=== PATIENT | male | born 1980 | race Caucasian/White ===

== ENCOUNTER 2017-10-26 20:40 | Inpatient (IN) ==
[2017-10-26 20:59] LABS: ABG Base Excess -16 mEq/L (-2 to 3); ABG HCO3 21 mEq/L (21-27); ABG Oxygen Saturation 89 % (95-98); ABG PCO2 122 mmHg (35-45); ABG PH 6.85 pH Units (7.32-7.45); ABG PO2 102 mmHg (85-104); ABG TCO2 25 mEq/L (20-26)
[2017-10-26] MEDS ORDERED: 0.9 % Sodium Chloride 500 ML IVC ONE (21:05)
--- NOTE | 2017-10-26 21:11 | Emergency Department Note ---
Disposition Clinical Impression: Hypoxic brain injury, Cardiac arrest, Elevated lactic acid level Overdose Qualifiers: Encounter type: initial encounter Injury intent: undetermined intent Qualified Code(s): T50.904A - Poisoning by unspecified drugs, medicaments and biological substances, undetermined, initial encounter Diarrhea Qualifiers: Diarrhea type: presumed infectious Qualified Code(s): R19.7 - Diarrhea, unspecified Pneumonia Qualifiers: Pneumonia type: due to unspecified organism Laterality: unspecified laterality Lung location: unspecified part of lung Qualified Code(s): J18.9 - Pneumonia, unspecified organism Disposition: Admitted As Inpatient Condition: Critical General Adult HPI - General Chief complaint: ED Cardiac Arrest/CPR Stated complaint: Cardiac arrest possibly secondary to overdose Time Seen by Provider: 10/26/17 20:40 Source: family, EMS - History of Present Illness HPI Narrative: 37-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 EMS reports that the patient was last seen by the parents about 6:30 PM and then around 7:45 was found on the floor unresponsive. When mother arrived and the history obtained from mother she reports that it was a witnessed arrest. She states that she had taken him down some macaroni and cheese and they had eaten and then they were going to watch some movies on the DP are. She went upstairs to get some chocolate and came back down stairs to the basement. The patient was sitting at the DVR when she states that he began talking out of his head and saying things that did not make sense. He then sat down and fell back and his eyes rolled back in his head and he stopped breathing and his lips turned blue. Patient's father started CPR immediately and they called 911. Mother feels this was drug related. The patient has a history of multiple back surgeries and is on chronic pain medications however mother reports that she keep pain medications and gives them to him. He was recently increased to oxycodone 7.5 mg 3 times a day. She reports that he has recently been getting drugs off the street for his pain, particularly fentanyl. She reports that some of his friends came over earlier this evening. After EMS picked the patient up mother states that they did look around and found a straw and some type of smoking pipe. I asked the mother if there was any chance that this was not intentional and she said that it is possible. She reports that about a week ago he was talking about going to [employer] and states that he has been very depressed recently. EMS reports on their arrival the patient was on the floor in the basement unresponsive with no pulse and no respiratory effort. CPR by parents. Initial rhythm was asystole. Patient had a right tibial IO placed for venous access. Patient received epinephrine 1 mg IV and Narcan 4 mg per EMS prior to arrival. He was also defibrillated 1. On arrival here the patient was in PEA rhythm. Patient's down time on arrival here in the emergency department was approximately 45 minutes. Here in the emergency department the patient had an additional Narcan 2 mg IV and additional epinephrine 1 mg. He also received 1 amp of sodium bicarbonate. Patient had return of pulse after this treatment. He received rocuronium 100 mg IV for intubation and was intubated orally by Dr. Novoa. Patient has maintained a spontaneous pulse since the initial return of spontaneous circulation. He was placed on the ventilator. Mother reports patient has no prior history of any cardiac problems or hypertension. No history of diabetes. - Related Data Home Medications Medication Instructions Recorded Confirmed Acetaminophen [Tylenol] 325 mg PO Q4HR 09/01/16 09/01/16 Docusate [Colace] 100 mg PO BID 09/01/16 09/01/16 Ergocalciferol (VITAMIN D2) 50,000 unit PO QWEEK 09/01/16 09/01/16 [Vitamin D2] Gabapentin [Neurontin] 300 mg PO TID 09/01/16 09/01/16 Lidocaine 1 each TP 12 09/01/16 09/01/16 Methocarbamol [Robaxin-750] 750 mg PO QID 09/01/16 09/01/16 Oxycodone HCl/Acetaminophen 1 tab PO Q4H PRN 09/01/16 09/01/16 [Percocet 5-325 mg Tablet] Polyethylene Glycol 3350 17 gm PO DAILY 09/01/16 09/01/16 [Smoothlax] Sennosides [Senna] 8.6 mg PO BID 09/01/16 09/01/16 Allergies Allergy/AdvReac Type Severity Reaction Status Date / Time Apple Allergy Rash Verified 09/01/16 15:00 blue dye Allergy Rash Verified 09/01/16 15:00 Limitations: ROS unobtainable due to patients medical condition Past Medical History - Past Medical History Medical history: Reports: other Psychiatric history: Reports: no psych history - Social History Smoking Status: Former smoker Smokeless Tobacco Status: No Alcohol use: Reports: none Drug use: Reports: marijuana Physical Exam - General Limitations: other (Patient unresponsive) - Head Head exam: atraumatic - Eye Eye exam: Present: miosis, other (Pupils nonreactive) - ENT ENT exam: mucous membranes moist - Neck Neck exam: Present: trachea midline - Chest Chest inspection: Present: symmetric chest wall rise - Respiratory Respiratory exam: Present: normal lung sounds bilaterally, respiratory distress - Cardiovascular Cardiovascular exam: Present: tachycardia - Abdominal Exam Abdominal exam: Present: soft, Non-Tender - Extremities Exam Extremities exam: Absent: joint swelling - Neurological Exam Neurological exam: Present: other (Unresponsive) Course Vital Signs Temperature 98.6 F 10/26/17 20:40 Pulse Rate 152 10/26/17 20:40 Respiratory Rate 14 10/26/17 20:40 Blood Pressure 0/0 10/26/17 20:40 O2 Sat by Pulse Oximetry 85 10/26/17 20:40 Temperature 100.2 F H 10/27/17 04:15 Pulse Rate 138 10/27/17 04:15 Respiratory Rate 16 10/27/17 04:15 Blood Pressure 115/43 10/27/17 04:15 O2 Sat by Pulse Oximetry 99 10/27/17 04:15 Oxygen Delivery Oxygen Delivery Ventilator Procedures - Central Line Placement Right Femoral Central Line Inserted*: Yes Central Line Catheter Replacement*: Yes Central Line Insertion: emergent Consent Obtained: verbal consent Procedural Pause: verify patient name and date of , timeout performed per policy Patient Placed on Monitor/Pulse Ox: Yes During the Procedure: clinician is wearing sterile gloves, cap, mask,& gown during insertion, sterile field and sterile technique are maintained, patient's face is covered with drape or mask and wearing a cap, everyone in room is wearing a mask Central Line Prep: Chlorhexidine scrub Prep the Procedure Site: apply chloraprep to the skin using a back and forth scrubbing motion Ultrasound Used for Placement: Yes Central Line Lumen Inserted: triple Post Procedure: sutured in place, good blood return, all ports aspirated, flushed, capped, sterile dressing applied, guide wire removed and visualized Post Procedure X-Ray: tip of catheter in good position, no pneumothorax seen Patient Tolerated Procedure: well, no complications Complications: none Name of Clinician Inserting Central Line: Tao Lacy DO Clinician Assisting/Completing Checklist: Dr. Yaw Morales Date: 10/27/17 Additional Comments: Due to patient's dwarfism and different anatomy, placement of central line was very difficult. - Intubation Time out performed: No sedative: none paralytic: Rocuronium Mg Given: 100 Laryngoscope: fiber optic video scope Assist Device Used: Bougie ET Tube Size: 7 ET Tube Uncuffed: No Tube Secured Depth (cm): 20 Tube Secured Location: lips Intubation Complications: none Additional Comments: Patient was intubated by Dr. Reji Novoa during cardiac arrest with CPR in progress. Medical Decision Making - [facility] Narrative Medical decision making narrative: 37-year-old male with past medical history of dwarfism and overdoses with fentanyl presents to the emergency department via EMS after being found unresponsive at home. Concern from her parents was that patient may have attempted suicide. Patient may have been down for an hour and a half prior to EMS arrival. Patient was given 4 of Narcan prior to arrival to the emergency department as well as a milligram of epinephrine. Patient was in asystole. He was defibrillated. Once the patient arrived in the emergency department, he was in PEA. Patient was intubated. He received chest compressions, 1 round of epinephrine and ROSC was obtained. Patient was profoundly tachycardic with a heart rate in the 150s. Patient was given a 500 mg bolus of fluids and did not respond to therapy. He was also given a liter of normal saline and did not respond to this as well. We did not begin any rate lowering medications as there was concern for possible worsening of patient's hypotension. Initial blood gas revealed a pH of 6.85. PCO2 was elevated. Cause of acidosis was most likely secondary to hypoxia, hypoperfusion of organs. He was given an amp of bicarbonate during the code. He was also started on bicarbonate infusion. CT scan of the head was obtained and revealed evidence of lower hypoxic ischemic injury. There is no intracranial hemorrhage. Cervical spine CT was negative for an acute abdomen at the cervical spine. CTA of the chest and not reveal any evidence of pulmonary embolus, we will revealed possible pneumonia that could be considered aspiration. We gave patient vancomycin and Zosyn. Repeat blood gas revealed a pH of 7.2. At that time, we stopped bicarbonate infusion. Patient was having diarrhea in the emergency department. There was concern from nursing staff that this may be C. difficile. IV Flagyl started. GI infection panel is pending. Family was made aware of results of imaging and labs. Aware of concern for anoxic brain injury. Spoke with hospitalist on phone regarding admission. They agreed to admit patient to the intensive care unit. Requested we place central line as blood pressures were labile. Right femoral vein central venous catheter was placed. This was very difficult due to patient's anatomy. Head CT 10/26/17 21:07 IMPRESSION: Findings highly suspicious for global hypoxic ischemic injury. No intracranial hemorrhage. Findings were discussed with Dr. Lacy at 11:35 pm on 10/26/2017. D/ / Dale Berrios MD / Dale Berrios MD Interpreting Provider: Dale Berrios MD Chest X-Ray 10/26/17 21:08 IMPRESSION: 1. Endotracheal tube approximately 1.1 cm above the tin. 2. Partial re-expansion of the left lung with persistent left basilar airspace opacities. D/ / Carlos Menard MD / Carlos Menard MD Interpreting Provider: Carlos Menard MD Cervical Spine CT 10/26/17 21:14 IMPRESSION: No acute abnormality of the cervical spine. D/ / 10/26/2017 23:32:45 Dale Berrios MD / heidi Interpreting Provider: Dale Berrios MD Chest CTA 10/26/17 21:15 IMPRESSION: No evidence of a pulmonary embolus. Suwt-ubwbeax-mtfw-right bibasilar parenchymal disease, likely atelectasis. Pneumonia possibly from aspiration not excluded. There is trace right pleural fluid. Cholelithiasis. The tip of the endotracheal tube is at the level of the tin. The tube should be withdrawn 2 cm. D/ / Johnnie Villavicencio MD / Johnnie Villavicencio MD Interpreting Provider: Johnnie Villavicencio MD Abdomen/Pelvis CT 10/26/17 21:16 IMPRESSION: Cholelithiasis. There is trace pericholecystic fluid. There is an extended spinal fusion at the thoracolumbar junction with kyphotic angulation, unchanged. The disc space at T10-T11 which is the level above the fusion has increased in width from 03/20/2017 and there is a new slight retrolisthesis of T10 on T11. Findings suggest instability at the level above the fusion. Follow-up is recommended. D/ / Johnnie Villavicencio MD / Johnnie Villavicencio MD Interpreting Provider: Johnnie Villavicencio MD X-Ray 10/27/17 02:23 IMPRESSION: Right femoral line terminates over the superior endplate of T12. D/ / Zion Gray / Zion Gray Interpreting Provider: Zion Gray - Lab Data Result diagrams: 10/26/17 21:17 10/26/17 21:17 Lab Results 10/26/17 10/26/17 10/26/17 Range/Units 20:56 21:09 21:09 WBC (4.3-11.1) K/mcL RBC (4.19-5.50) M/mcL Hgb (12.9-16.9) g/dL Hct (37.5-50.1) % MCV (83.0-100.0) fL MCH (28.0-33.3) pg MCHC (31.6-35.5) g/dL RDW (11.5-14.5) % Plt Count (140-400) K/mcL MPV (9.4-12.4) fL Immature Gran % (0-4) % Seg Neutrophils % % Lymphocytes % % Monocytes % % Eosinophils % % Basophils % % Neutrophils # (1.6-8.9) K/mcL Lymphocytes # (0.6-4.6) K/mcL Monocytes # (0.0-1.3) K/mcL Eosinophils # (0.0-0.6) K/mcL Basophils # (0.0-0.2) K/mcL Nucleated RBCs/100 WBC (0) /100 WBC Reactive Lymphocytes (Not Present) Platelet Estimate (Normal) Large Platelets (Not Present) D-Dimer (0-500) ng/mLFEU Sample Site L Radial ABG pH 6.85 L* (7.32-7.45) pH Units ABG pCO2 122 H* (35-45) mmHg ABG pO2 102 (85-104) mmHg ABG HCO3 21 (21-27) mEq/L ABG Total CO2 25 (20-26) mEq/L ABG O2 Saturation 89 L (95-98) % ABG Base Excess -16 L (-2 to 3) mEq/L Andrea Test N/A Respiration Rate O2 Delivery Device Bagging Blood Gas Modality Inspired O2 100.0 (1-15=lpm [id number]=%) Tidal Volume cc PEEP cm H2O Sodium (136-145) mEq/L Potassium (3.5-5.1) mEq/L Chloride (98-107) mEq/L Carbon Dioxide (23-29) mEq/L BUN (6-20) mg/dL Creatinine (0.70-1.30) mg/dL Est GFR ( Amer) (> 60) Est GFR (Non-Af Amer) (> 60) BUN/Creatinine Ratio (6-26) Glucose (70-105) mg/dL Calculated Osmolality (280-300) Lactic Acid (0.5-2.2) mmol/L Calcium (8.6-10.3) mg/dL Total Bilirubin (0.3-1.0) mg/dL AST (13-39) Units/L ALT (7-52) Units/L Alkaline Phosphatase (34-104) Units/L Creatine Kinase (30-223) Units/L Troponin I (< 0.04) ng/mL Serum Total Protein (6.4-8.9) g/dL Albumin (3.5-5.7) g/dL Globulin (2.4-3.5) g/dL Albumin/Globulin Ratio (1.1-2.2) Lipase (11-82) Units/L TSH (0.340-5.600) mcIU/mL Urine Color Yellow (Yellow) Urine Clarity Cloudy A (Clear) Urine pH 6.5 (5.0-8.0) pH Units Ur Specific [place] 1.017 (1.010-1.025) Urine Protein Negative (Neg-Trace) mg/dL Urine Glucose (UA) Normal (Normal) mg/dL Urine Ketones Negative (Negative) mg/dL Urine Blood Negative (Negative) Urine Nitrite Negative (Negative) Urine Bilirubin Negative (Negative) Urine Urobilinogen Normal (Normal) mg/dL Ur Leukocyte Esterase Negative (Negative) Urine Microscopic RBC 0-3 (0-3) per hpf Urine Microscopic WBC 15-30 H (0-3) per hpf Ur Squamous Epith Cells Many H (None-Few) per lpf Urine Bacteria None Seen (None-Few) per hpf Hyaline Casts None Seen (None-Few) per lpf Urine Sperm Present Ur Culture Indicated? NO (NO) Salicylates (15.0-30.0) mg/dL Urine Opiates Screen Negative (Uuiypg=228) ng/mL Acetaminophen (10-20) mcg/mL Ur Barbiturates Screen Negative (Fjxcph=689) ng/mL Ur Phencyclidine Scrn Negative (Cutoff=25) ng/mL Ur Amphetamines Screen Negative (Dmgoxz=7986) ng/mL U Benzodiazepines Scrn Negative (Tksqvq=606) ng/mL Urine Cocaine Screen Negative (Cutoff= 300) ng/mL U Marijuana (THC) Screen Negative (Cutoff = 50) ng/mL 10/26/17 10/26/17 10/26/17 Range/Units 21:17 21:17 21:17 WBC 19.7 H (4.3-11.1) K/mcL RBC 5.89 H (4.19-5.50) M/mcL Hgb 16.5 (12.9-16.9) g/dL Hct 52.5 H (37.5-50.1) % MCV 89.1 (83.0-100.0) fL MCH 28.0 (28.0-33.3) pg MCHC 31.4 L (31.6-35.5) g/dL RDW 12.4 (11.5-14.5) % Plt Count 143 (140-400) K/mcL MPV 10.7 (9.4-12.4) fL Immature Gran % 8.4 H (0-4) % Seg Neutrophils % 61.4 % Lymphocytes % 24.9 % Monocytes % 3.1 % Eosinophils % 1.4 % Basophils % 0.8 % Neutrophils # 12.1 H (1.6-8.9) K/mcL Lymphocytes # 4.9 H (0.6-4.6) K/mcL Monocytes # 0.6 (0.0-1.3) K/mcL Eosinophils # 0.3 (0.0-0.6) K/mcL Basophils # 0.2 (0.0-0.2) K/mcL Nucleated RBCs/100 WBC 0.2 H (0) /100 WBC Reactive Lymphocytes Present A (Not Present) Platelet Estimate Normal (Normal) Large Platelets Present A (Not Present) D-Dimer > [id number] H (0-500) ng/mLFEU Sample Site ABG pH (7.32-7.45) pH Units ABG pCO2 (35-45) mmHg ABG pO2 (85-104) mmHg ABG HCO3 (21-27) mEq/L ABG Total CO2 (20-26) mEq/L ABG O2 Saturation (95-98) % ABG Base Excess (-2 to 3) mEq/L Andrea Test Respiration Rate O2 Delivery Device Blood Gas Modality Inspired O2 (1-15=lpm [id number]=%) Tidal Volume cc PEEP cm H2O Sodium 139 (136-145) mEq/L Potassium 4.4 (3.5-5.1) mEq/L Chloride 100 (98-107) mEq/L Carbon Dioxide 19 L (23-29) mEq/L BUN 17 (6-20) mg/dL Creatinine 0.88 (0.70-1.30) mg/dL Est GFR ( Amer) > 60 (> 60) Est GFR (Non-Af Amer) > 60 (> 60) BUN/Creatinine Ratio 19 (6-26) Glucose 282 H (70-105) mg/dL Calculated Osmolality 300 (280-300) Lactic Acid (0.5-2.2) mmol/L Calcium 9.0 (8.6-10.3) mg/dL Total Bilirubin 0.5 (0.3-1.0) mg/dL AST 168 H (13-39) Units/L ALT 126 H (7-52) Units/L Alkaline Phosphatase 125 H (34-104) Units/L Creatine Kinase 157 (30-223) Units/L Troponin I 0.03 (< 0.04) ng/mL Serum Total Protein 6.6 (6.4-8.9) g/dL Albumin 4.1 (3.5-5.7) g/dL Globulin 2.5 (2.4-3.5) g/dL Albumin/Globulin Ratio 1.6 (1.1-2.2) Lipase 60 (11-82) Units/L TSH 5.680 H (0.340-5.600) mcIU/mL Urine Color (Yellow) Urine Clarity (Clear) Urine pH (5.0-8.0) pH Units Ur Specific [place] (1.010-1.025) Urine Protein (Neg-Trace) mg/dL Urine Glucose (UA) (Normal) mg/dL Urine Ketones (Negative) mg/dL Urine Blood (Negative) Urine Nitrite (Negative) Urine Bilirubin (Negative) Urine Urobilinogen (Normal) mg/dL Ur Leukocyte Esterase (Negative) Urine Microscopic RBC (0-3) per hpf Urine Microscopic WBC (0-3) per hpf Ur Squamous Epith Cells (None-Few) per lpf Urine Bacteria (None-Few) per hpf Hyaline Casts (None-Few) per lpf Urine Sperm Ur Culture Indicated? (NO) Salicylates < 2.5 L (15.0-30.0) mg/dL Urine Opiates Screen (Pmxitl=238) ng/mL Acetaminophen < 10 L (10-20) mcg/mL Ur Barbiturates Screen (Nxqrqv=535) ng/mL Ur Phencyclidine Scrn (Cutoff=25) ng/mL Ur Amphetamines Screen (Rddxmn=6590) ng/mL U Benzodiazepines Scrn (Pavotg=759) ng/mL Urine Cocaine Screen (Cutoff= 300) ng/mL U Marijuana (THC) Screen (Cutoff = 50) ng/mL 10/26/17 10/26/17 Range/Units 22:03 23:15 WBC (4.3-11.1) K/mcL RBC (4.19-5.50) M/mcL Hgb (12.9-16.9) g/dL Hct (37.5-50.1) % MCV (83.0-100.0) fL MCH (28.0-33.3) pg MCHC (31.6-35.5) g/dL RDW (11.5-14.5) % Plt Count (140-400) K/mcL MPV (9.4-12.4) fL Immature Gran % (0-4) % Seg Neutrophils % % Lymphocytes % % Monocytes % % Eosinophils % % Basophils % % Neutrophils # (1.6-8.9) K/mcL Lymphocytes # (0.6-4.6) K/mcL Monocytes # (0.0-1.3) K/mcL Eosinophils # (0.0-0.6) K/mcL Basophils # (0.0-0.2) K/mcL Nucleated RBCs/100 WBC (0) /100 WBC Reactive Lymphocytes (Not Present) Platelet Estimate (Normal) Large Platelets (Not Present) D-Dimer (0-500) ng/mLFEU Sample Site ABG pH 7.20 L* D (7.32-7.45) pH Units ABG pCO2 53 H D (35-45) mmHg ABG pO2 385 H D (85-104) mmHg ABG HCO3 21 (21-27) mEq/L ABG Total CO2 22 (20-26) mEq/L ABG O2 Saturation 100 H (95-98) % ABG Base Excess -8 L (-2 to 3) mEq/L Andrea Test Respiration Rate 20 O2 Delivery Device Adult Vent Blood Gas Modality ASSIST CONTROL Inspired O2 100.0 (1-15=lpm md78-302=%) Tidal Volume 350 cc PEEP 8 cm H2O Sodium (136-145) mEq/L Potassium (3.5-5.1) mEq/L Chloride (98-107) mEq/L Carbon Dioxide (23-29) mEq/L BUN (6-20) mg/dL Creatinine (0.70-1.30) mg/dL Est GFR ( Amer) (> 60) Est GFR (Non-Af Amer) (> 60) BUN/Creatinine Ratio (6-26) Glucose (70-105) mg/dL Calculated Osmolality (280-300) Lactic Acid 6.2 H* (0.5-2.2) mmol/L Calcium (8.6-10.3) mg/dL Total Bilirubin (0.3-1.0) mg/dL AST (13-39) Units/L ALT (7-52) Units/L Alkaline Phosphatase (34-104) Units/L Creatine Kinase (30-223) Units/L Troponin I (< 0.04) ng/mL Serum Total Protein (6.4-8.9) g/dL Albumin (3.5-5.7) g/dL Globulin (2.4-3.5) g/dL Albumin/Globulin Ratio (1.1-2.2) Lipase (11-82) Units/L TSH (0.340-5.600) mcIU/mL Urine Color (Yellow) Urine Clarity (Clear) Urine pH (5.0-8.0) pH Units Ur Specific [place] (1.010-1.025) Urine Protein (Neg-Trace) mg/dL Urine Glucose (UA) (Normal) mg/dL Urine Ketones (Negative) mg/dL Urine Blood (Negative) Urine Nitrite (Negative) Urine Bilirubin (Negative) Urine Urobilinogen (Normal) mg/dL Ur Leukocyte Esterase (Negative) Urine Microscopic RBC (0-3) per hpf Urine Microscopic WBC (0-3) per hpf Ur Squamous Epith Cells (None-Few) per lpf Urine Bacteria (None-Few) per hpf Hyaline Casts (None-Few) per lpf Urine Sperm Ur Culture Indicated? (NO) Salicylates (15.0-30.0) mg/dL Urine Opiates Screen (Kqqkgd=713) ng/mL Acetaminophen (10-20) mcg/mL Ur Barbiturates Screen (Rvmuiz=025) ng/mL Ur Phencyclidine Scrn (Cutoff=25) ng/mL Ur Amphetamines Screen (Zovkhz=1465) ng/mL U Benzodiazepines Scrn (Xibeos=543) ng/mL Urine Cocaine Screen (Cutoff= 300) ng/mL U Marijuana (THC) Screen (Cutoff = 50) ng/mL - EKG Data EKG #1 EKG attestation: Yes I reviewed and interpreted this EKG. EKG results narrative: 20:37 EKG #1 Ventricular rate 152 bpm, QRS duration 150 ms, QT 302 ms, QTC 388 ms, right axis deviation. Regular rhythm with a ventricular rate of 152 bpm. There is right axis deviation. No previous echocardiogram to compare this study 2. Widened QRS. No evidence of QT prolongation. 21:12 Ventricular rate 149 bpm, OR interval 132 ms, QRS duration 100 ms, QT 341 ms, QTC 426 ms, right axis deviation. Widened QRS has improved. There is right bundle branch block. Critical Care Time Critical Care Time: Yes Total Critical Care Time: 90 Attestation: Critical care performed: Time is exclusive of separately billable procedures. Time includes: direct patient care, patient reassessment, coordination of patient care, interpretation of data (laboratory data, radiology data, and respiratory data), review of patient's medical records, medical consultation and documentation of patient care. Procedures included in critical care time: Procedures excluded from critical care time: Endotracheal intubation, right femoral central line placement Attestation Statement - Attestation Attestation: I, Yaw Morales MD, personally evaluated this patient and discussed their management with the resident physician. I reviewed the resident's note and agree with the documented findings, medical decision making, and plan of care. History of present illness documented in this chart by me. On exam on arrival patient is a door male who is unresponsive. PEA on monitor. Patient being bagged. He was intubated here. Patient had ROSC here in the emergency department after receiving an additional epinephrine, Narcan 2 mg, and an amp of sodium bicarbonate. Orogastric tube placed. Chu placed. Patient placed on a ventilator. After intubation patient had equal breath sounds bilaterally. He has good heart sounds with a moderate tachycardia. Labs x-rays and CTs reviewed. The hospitalist, Dr. Javed, was consulted and accepted admission of the patient.
[2017-10-26] MEDS ORDERED: Isovue-370 500 ML INFUS..BTL IV ONE (21:15)
[2017-10-26] MEDS ORDERED: Sodium Bicarbonate 50 MEQ in 0.45 % Sodium Chloride 1,000 ML IVC SCH (21:15)
[2017-10-26 21:17] LABS: Bilirubin,Urine Negative (Negative); Blood,Urine Negative (Negative); Clarity,Urine Cloudy (Clear); Color,Urine Yellow (Yellow); Glucose,Urine (UA) Normal (Normal); Ketones,Urine Negative (Negative); Leukocyte Esterase,Urine Negative (Negative); Nitrite,Urine Negative (Negative); PH,Urine 6.5 pH Units (5.0-8.0); Protein,Urine Negative (Neg-Trace); Specific Gravity,Urine 1.017 (1.010-1.025); Urobilinogen,Urine Normal (Normal)
[2017-10-26 21:20] LABS: Bacteria,Urine None Seen per hpf (None-Few); Hyaline Casts,Urine None Seen per lpf (None-Few); RBC,Urine 0-3 per hpf (0-3); Squamous Epithelial Cell,Urine Many per lpf (None-Few); WBC,Urine 15-30 per hpf (0-3)
[2017-10-26 21:26] LABS: Sperm,Urine Present
[2017-10-26 21:30] LABS: Basophils # 0.2 K/mcL (0.0-0.2); Basophils % 0.8 %; Eosinophils # 0.3 K/mcL (0.0-0.6); Eosinophils % 1.4 %; Hematocrit 52.5 % (37.5-50.1); Hemoglobin 16.5 g/dL (12.9-16.9); Immature Granulocytes % 8.4 % (0-4); Lymphocytes # 4.9 K/mcL (0.6-4.6); Lymphocytes % 24.9 %; Mean Corpuscular HGB Conc 31.4 g/dL (31.6-35.5); Mean Corpuscular Volume 89.1 fL (83.0-100.0); Mean Platelet Volume 10.7 fL (9.4-12.4); Monocytes # 0.6 K/mcL (0.0-1.3); Monocytes % 3.1 %; Neutrophils # 12.1 K/mcL (1.6-8.9); Nucleated Red Blood Cells 0.2 /100 WBC (0); Platelet Count 143 K/mcL (140-400); Red Blood Count 5.89 M/mcL (4.19-5.50); Red Cell Distribution Width 12.4 % (11.5-14.5); Segmented Neutrophils % 61.4 %
[2017-10-26 21:58] LABS: Amphetamine Screen,Urine Negative ng/mL (Cutoff=1000); Barbiturate Screen,Urine Negative ng/mL (Cutoff=200); Benzodiazepines Screen,Urine Negative ng/mL (Cutoff=200); Cannabinoid Screen,Urine Negative ng/mL (Cutoff = 50); Cocaine Screen,Urine Negative ng/mL (Cutoff= 300); Opiate Screen,Urine Negative ng/mL (Cutoff=300); Phencyclidine Screen,Urine Negative ng/mL (Cutoff=25)
[2017-10-26 22:07] LABS: Acetaminophen < 10 mcg/mL (10-20); Alanine Aminotransferase 126 Units/L (7-52); Albumin 4.1 g/dL (3.5-5.7); Albumin/Globulin Ratio 1.6 (1.1-2.2); Alkaline Phosphatase 125 Units/L (34-104); Aspartate Amino Transferase 168 Units/L (13-39); BUN/Creatinine Ratio 19 (6-26); Bilirubin,Total 0.5 mg/dL (0.3-1.0); Blood Urea Nitrogen 17 mg/dL (6-20); Carbon Dioxide 19 mEq/L (23-29); Chloride 100 mEq/L (98-107); Creatine Kinase 157 Units/L (30-223); Globulin 2.5 g/dL (2.4-3.5); Glucose 282 mg/dL (70-105); Lipase 60 Units/L (11-82); Osmolality,Calculated 300 (280-300); Potassium 4.4 mEq/L (3.5-5.1); Salicylate < 2.5 mg/dL (15.0-30.0); Sodium 139 mEq/L (136-145); Total Protein 6.6 g/dL (6.4-8.9); Troponin I 0.03 ng/mL (< 0.04); eGFR For African Americans > 60 (> 60); eGFR For Non-African Americans > 60 (> 60)
[2017-10-26 22:08] LABS: ABG Base Excess -8 mEq/L (-2 to 3); ABG HCO3 21 mEq/L (21-27); ABG Oxygen Saturation 100 % (95-98); ABG PCO2 53 mmHg (35-45); ABG PO2 385 mmHg (85-104); ABG TCO2 22 mEq/L (20-26); Blood Gas Modality ASSIST CONTROL; Blood Gas PEEP 8 cm H2O; Blood Gas Respiration Rate 20; Blood Gas VT 350 cc
[2017-10-26 22:09] LABS: Large Platelets Present (Not Present); Platelet Estimate Normal (Normal); Reactive Lymphocytes Present (Not Present)
[2017-10-26] MEDS ORDERED: Levofloxacin 750 MG/150 ML 750 MG/150 ML BAG IVPB ONE (23:52)
[2017-10-26] MEDS ORDERED: 0.9 % Sodium Chloride 1,000 ML IVC ONE (23:54)
[2017-10-26] MEDS ORDERED: Piperacillin/Tazobactam 3.375 GM in 0.9 % Sodium Chloride Mini Bag 100 ML IVPB ONE (23:59)
[2017-10-27] MEDS ORDERED: *HR* Midazolam HCl 2 MG/2 ML VIAL IVP ONE
[2017-10-27] MEDS ORDERED: MetroNIDAZOLE 500 MG/100 ML 500 MG/100 ML BAG IVPB ONE (00:40)
[2017-10-27] MEDS ORDERED: Naloxone 0.4 MG/ML INJ IVP PRN (01:58)
[2017-10-27] MEDS ORDERED: 0.9 % Sodium Chloride 1,000 ML IVC SCH ×2 (02:00→05:30)
--- NOTE | 2017-10-27 02:09 | Internal Med History&Physical ---
Date of Encounter: 10/27/17 Time of Encounter: 01:00 Internal Medicine - H&P: HPI Chief complaint: Cardiac arrest Admitted From: Home Plans for Post Hospital Care: Home History of present illness: Mr. Izaguirre is a 37 year old male presented to ER for cardiac arrest. Past medical history is significant for chronic back pain on pain medications. Patient is intubated. Patient family is not at bedside. I tried to found family in ICU waiting room but cannot found family. History is obtained from ER notes. Patient has witnessed cardiac arrest at home this evening. CPR started by patient's father and the EMS was called. Upon arrival ER, patient has PEA. Spontaneous pulse recovered after PCR in emergency room. Patient was intubated and is on mechanical ventilation. CT chest has been done, suspect aspiration pneumonia. Patient was started antibiotics and admitted to ICU for further management. As per ER physician, patient's family want everything to be done to save patient 's life. Full code has been placed. Past Med Surg Social Fam HX - Past Medical History Medical history: other Additional medical history: Chronic back pain. Psychiatric history: no psych history - Past Surgical History Additional surgical history: Back surgery. Throat surgery - Social History Smoking Status: Former smoker Smokeless Tobacco Status: No Alcohol use: none Drug use: marijuana - Family History Mother History Unknown: Yes Internal Medicine - H&P: Meds Acetaminophen [Tylenol] 325 mg PO Q4HR 09/01/16 [History] Docusate [Colace] 100 mg PO BID 09/01/16 [History] Ergocalciferol (VITAMIN D2) [Vitamin D2] 50,000 unit PO QWEEK 09/01/16 [History] Gabapentin [Neurontin] 300 mg PO TID 09/01/16 [History] Lidocaine 1 each TP 12 09/01/16 [History] Methocarbamol [Robaxin-750] 750 mg PO QID 09/01/16 [History] Oxycodone HCl/Acetaminophen [Percocet 5-325 mg Tablet] 1 tab PO Q4H PRN [History] Polyethylene Glycol 3350 [Smoothlax] 17 gm PO DAILY 09/01/16 [History] Sennosides [Senna] 8.6 mg PO BID 09/01/16 [History] 3 Allergy/AdvReac Type Severity Reaction Status Date / Time Apple Allergy Rash Verified 09/01/16 15:00 blue dye Allergy Rash Verified 09/01/16 15:00 All Systems PM: A 10-system review of systems was performed and is negative for pertinent findings except as documented above in the HPI. - Constitutional Vitals: Temp Pulse Resp BP Pulse Ox 98.6 F 144 20 103/42 95 10/26/17 20:40 10/27/17 00:39 10/27/17 00:39 10/27/17 00:39 10/27/17 00:39 General appearance: Present: A&O X 0 - Head Head exam: Present: atraumatic, normocephalic - Eye Eye exam: Present: conjuntiva pink, sclera anicteric - Neck Neck exam general surgery: Present: supple, trachea midline. Absent: lymphadenopathy - Respiratory Respiratory exam: Present: CTAB. Absent: accessory muscle use, rales, rhonchi, wheezes - Cardiovascular Cardiovascular exam: Present: RRR, +S1, +S2, tachycardia. Absent: diastolic murmur, gallop, rubs, systolic murmur - GI/Abdominal GI/Abdominal exam: Present: distended, normal bowel sounds, soft, no peritoneal signs. Absent: tenderness - Extremities Exam Extremities exam: Present: warm, radial pulses palpable and symmetrical. Absent : calf tenderness, cyanotic, pedal edema - Neurological Exam Neurological exam: Absent: facial droop Additional comments: Patient is intubated. - Skin Skin exam: Present: dry, intact Internal Med - H&P Results - Labs CBC & Chem 7: 10/26/17 21:17 10/26/17 21:17 - Assessment and plan (1) Cardiac arrest Current Visit: Yes Status: Acute Assessment and plan: Etiology is unclear. Patient was suspected opioid overdose however urine toxicity screen shows negative for opioid. S/P CPR - Continue ACLS protocol - Patient is intubated, OG tube has been placed, Chu catheter has been placed. ER doctor is working on Central line. - Place patient on hypothymia protocol to decrease further brain damage. Although CT head shows possible global hypoxic ischemic injury. - Pressor as needed to maintain MAP > 65. Critical care time 40 minutes including history review, physical exam, lab results and imaging results review, and medical decision-making. (2) Aspiration pneumonia Current Visit: Yes Status: Acute Assessment and plan: Continue cover patient with Ignacio Traylor. Continue ventilation support. Qualifiers: Laterality: bilateral Lung location: unspecified part of lung Qualified Code(s): J69.0 - Pneumonitis due to inhalation of food and vomit (3) Sepsis Current Visit: Yes Status: Acute Assessment and plan: Patient has leukocytosis. High lactic acid level probably due to cardiac arrest. - Patient has been given bolus fluid in ER. - Continue IV antibiotics. - Patient is on bicarbonate drip at this point. Qualifiers: Sepsis type: sepsis due to unspecified organism Qualified Code(s): A41.9 - Sepsis, unspecified organism (4) Metabolic acidosis Current Visit: Yes Status: Acute Assessment and plan: Patient was given bolus bicarbonate during CPR. Continue bicarbonate drip. Repeated ABG in a.m. 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
[2017-10-27] MEDS ORDERED: *HR* Vecuronium 10 MG VIAL IVP PRN (02:58)
[2017-10-27] MEDS ORDERED: *HR* Vecuronium 10 MG VIAL IVP ONE (02:58)
[2017-10-27] MEDS ORDERED: *HR* Vecuronium 10 MG VIAL ONE (03:07)
[2017-10-27] MEDS: FentaNYL (PF) 1,000 MCG in 0.9 % Sodium Chloride 80 ML IVC SCH ×2 (03:25→12:30)
[2017-10-27] MEDS: Norepinephrine 4 MG in D5% in Water 250 ML IVC SCH ×2 (03:44→04:51)
[2017-10-27] MEDS: *HR* Vecuronium 10 MG VIAL IVP PRN ×3 (04:45→07:04)
[2017-10-27 05:00] LABS: Basophils % 0.1 %; Eosinophils # 0.1 K/mcL (0.0-0.6); Eosinophils % 0.4 %; Hematocrit 48.3 % (37.5-50.1); Immature Granulocytes % 0.8 % (0-4); Lymphocytes # 1.5 K/mcL (0.6-4.6); Mean Corpuscular HGB Conc 33.1 g/dL (31.6-35.5); Mean Corpuscular Hemoglobin 28.1 pg (28.0-33.3); Mean Corpuscular Volume 84.7 fL (83.0-100.0); Monocytes % 5.3 %; Neutrophils # 15.8 K/mcL (1.6-8.9); Platelet Count 153 K/mcL (140-400); Red Cell Distribution Width 12.8 % (11.5-14.5); Segmented Neutrophils % 85.4 %
[2017-10-27 05:10] LABS: ABG Base Excess 2 mEq/L (-2 to 3); ABG HCO3 29 mEq/L (21-27); ABG Oxygen Saturation 97 % (95-98); ABG PCO2 52 mmHg (35-45); ABG PH 7.36 pH Units (7.32-7.45); ABG PO2 98 mmHg (85-104); ABG TCO2 30 mEq/L (20-26); Blood Gas Modality PRVC; Blood Gas PEEP 8 cm H2O; Blood Gas Respiration Rate 16; Blood Gas VT 350 cc
[2017-10-27 05:24] LABS: BUN/Creatinine Ratio 26 (6-26); Blood Urea Nitrogen 22 mg/dL (6-20); Calcium 8.4 mg/dL (8.6-10.3); Carbon Dioxide 26 mEq/L (23-29); Chloride 114 mEq/L (98-107); Glucose 84 mg/dL (70-105); Magnesium 2.2 mg/dL (1.6-2.6); Osmolality,Calculated 309 (280-300); Potassium 3.8 mEq/L (3.5-5.1); Sodium 148 mEq/L (136-145); eGFR For African Americans > 60 (> 60); eGFR For Non-African Americans > 60 (> 60)
[2017-10-27] MEDS ORDERED: Lacri-Lube 3.5 GM TUBE BOTH EYES PRN ×2 (06:24→10:36)
--- NOTE | 2017-10-27 07:25 | Electrocardiograph Report ---
[address] [place], [place] [address] Test Date: 2017-10-26 Pat Name: Kevin Izaguirre Department: 103 Room: 08 Gender: M Home Help Aide: RUMA : 1980 Requested By: Tao Lacy Order Number: [id number] Reading MD: Og Pabon Measurements Intervals [place] Rate: 149 P: 84 MN: 132 QRS: 120 QRSD: 100 T: 62 QT: 341 QTc: 426 Interpretive Statements SINUS TACHYCARDIA, POSSIBLE ATRIAL FLUTTER INCOMPLETE RIGHT BUNDLE BRANCH BLOCK Poor R wave progression Electronically Signed On 10-27-2017 7:23:57 EDT by Og Pabon
[2017-10-27] MEDS ORDERED: MetroNIDAZOLE 500 MG/100 ML 500 MG/100 ML BAG IVPB SCH (08:00)
[2017-10-27] MEDS: Lacri-Lube 3.5 GM TUBE BOTH EYES SCH ×5 (08:14→20:44)
[2017-10-27] MEDS: Piperacillin/Tazobactam 3.375 GM in 0.9 % Sodium Chloride Mini Bag 100 ML IVPB SCH ×2 (08:14→16:12)
[2017-10-27] MEDS ORDERED: *HR* Meperidine 25 MG/ML SYRINGE IVP PRN ×3 (08:27→11:01)
[2017-10-27] MEDS ORDERED: Chlorhexidine Rinse 15 ML MOUTHWASH MM SCH (09:00)
--- NOTE | 2017-10-27 09:53 | Pulmonology Consult Note ---
<Qi Martel M - Last Filed: 10/27/17 16:17> Date of Encounter: 10/27/17 Medications and Allergies Acetaminophen [Tylenol] 325 mg PO Q4HR 09/01/16 [History] Docusate [Colace] 100 mg PO BID 09/01/16 [History] Ergocalciferol (VITAMIN D2) [Vitamin D2] 50,000 unit PO QWEEK 09/01/16 [History] Lidocaine 1 each TP 12 09/01/16 [History] Methocarbamol [Robaxin-750] 750 mg PO QID 09/01/16 [History] Polyethylene Glycol 3350 [Smoothlax] 17 gm PO DAILY 09/01/16 [History] Sennosides [Senna] 8.6 mg PO BID 09/01/16 [History] DULoxetine [Cymbalta] 30 mg PO BID 10/27/17 [History] Gabapentin [Neurontin] 600 mg PO BID 10/27/17 [History] OxyCODONE/APAP 7.5/325 [Percocet 7.5/325 MG] 1 tab PO Q6H PRN 10/27/17 [History] 3 Allergy/AdvReac Type Severity Reaction Status Date / Time Apple Allergy Rash Verified 09/01/16 15:00 blue dye Allergy Rash Verified 09/01/16 15:00 All Systems: The remainder of the systems were reviewed and are negative Physical Examination Vital Signs: Vital Signs, Last 4 Hours Temp Pulse Resp BP Pulse Ox 10/27/17 15:35 17 154/86 94 10/27/17 15:00 97.4 F L 134 17 138/53 93 10/27/17 14:00 96.5 F L 84 16 105/53 96 10/27/17 13:35 19 175/143 94 10/27/17 13:00 97.2 F L 89 16 159/125 95 Ventilator Settings Ventilator Settings: Ventilator Settings, Last 8 Hours Ventilator Tidal Volume 350 Setting Ventilator Tidal Volume 350 Setting Ventilator Tidal Volume 350 Setting Ventilator Tidal Volume 350 Setting Ventilator Tidal Volume 350 Setting Ventilator Tidal Volume 350 Setting Ventilator Respiratory Rate 16 Setting Ventilator Respiratory Rate 16 Setting Ventilator Respiratory Rate 16 Setting Ventilator Respiratory Rate 16 Setting Ventilator Respiratory Rate 16 Setting Ventilator Respiratory Rate 16 Setting Actual Respiratory Rate 19 Actual Respiratory Rate 19 Actual Respiratory Rate 16 Actual Respiratory Rate 16 Actual Respiratory Rate 16 Actual Respiratory Rate 16 Positive End Expiratory 8 Pressure Positive End Expiratory 8 Pressure Positive End Expiratory 8 Pressure Positive End Expiratory 8 Pressure Positive End Expiratory 8 Pressure Positive End Expiratory 8 Pressure Peak Inspiratory Airway 30 Pressure Peak Inspiratory Airway 39 Pressure Peak Inspiratory Airway 39 Pressure Peak Inspiratory Airway 36 Pressure Peak Inspiratory Airway 32 Pressure Peak Inspiratory Airway 26 Pressure Results - Laboratory Findings CBC and BMP: 10/27/17 04:40 10/27/17 14:00 ABG ABG pH 7.36 pH Units (7.32-7.45) 10/27/17 05:07 ABG pCO2 52 mmHg (35-45) H 10/27/17 05:07 ABG pO2 98 mmHg (85-104) 10/27/17 05:07 ABG O2 Saturation 97 % (95-98) 10/27/17 05:07 PT/INR, D-dimer D-Dimer > [id number] ng/mLFEU (0-500) H 10/26/17 21:17 Abnormal lab findings: Abnormal lab results WBC 18.5 K/mcL (4.3-11.1) H 10/27/17 04:40 RBC 5.70 M/mcL (4.19-5.50) H 10/27/17 04:40 Neutrophils # 15.8 K/mcL (1.6-8.9) H 10/27/17 04:40 Nucleated RBCs/100 WBC 0.2 /100 WBC (0) H 10/26/17 21:17 Reactive Lymphocytes Present (Not Present) A 10/26/17 21:17 Large Platelets Present (Not Present) A 10/26/17 21:17 D-Dimer > [id number] ng/mLFEU (0-500) H 10/26/17 21:17 ABG pCO2 52 mmHg (35-45) H 10/27/17 05:07 ABG HCO3 29 mEq/L (21-27) H 10/27/17 05:07 ABG Total CO2 30 mEq/L (20-26) H 10/27/17 05:07 Sodium 150 mEq/L (136-145) H 10/27/17 14:00 Chloride 115 mEq/L (98-107) H 10/27/17 14:00 Carbon Dioxide 30 mEq/L (23-29) H 10/27/17 14:00 Creatinine 0.62 mg/dL (0.70-1.30) L 10/27/17 14:00 BUN/Creatinine Ratio 27 (6-26) H 10/27/17 14:00 Glucose 192 mg/dL (70-105) H 10/27/17 14:00 Calculated Osmolality 317 (280-300) H 10/27/17 14:00 AST 168 Units/L (13-39) H 10/26/17 21:17 ALT 126 Units/L (7-52) H 10/26/17 21:17 Alkaline Phosphatase 125 Units/L (34-104) H 10/26/17 21:17 TSH 5.680 mcIU/mL (0.340-5.600) H 10/26/17 21:17 Urine Clarity Cloudy (Clear) A 10/26/17 21:09 Urine Microscopic WBC 15-30 per hpf (0-3) H 10/26/17 21:09 Ur Squamous Epith Cells Many per lpf (None-Few) H 10/26/17 21:09 Salicylates < 2.5 mg/dL (15.0-30.0) L 10/26/17 21:17 Acetaminophen < 10 mcg/mL (10-20) L 10/26/17 21:17 U Benzodiazepines Scrn Positive ng/mL (Icfrof=180) H 10/27/17 11:03 Urine Cocaine Screen Positive ng/mL (Cutoff= 300) H 10/27/17 11:03 U Marijuana (THC) Screen Positive ng/mL (Cutoff = 50) H 10/27/17 11:03 - Clinical Findings Intake & Output: Intake & Output 10/27/17 10/27/17 10/27/17 07:59 15:59 23:59 Intake Total 1490.6 / 1490.6 792.3 / 792.3 Output Total 2580 / 2580 500 / 500 Balance -1089.4 / -1089.4 292.3 / 292.3 Consult Discharge Plan - Plan Referrals: Kevin Gonzalez [Primary Care Provider] - - Attending Attestation I examined this patient and my medical decision-making was reviewed with the Resident Physician. I agree with the documented findings, disposition and treatment plan as described except to the extent set forth below. Patient seen and examined. Labs, radiology, chart personally reviewed. Agree with resident's history and physical, assessment, plan with following comments: WANT AD RECEIVER: Patient does not follows commands, patient has evidence of anoxic/hypoxic brain injury, however examination is not completely reliable because he had received paralytics and he will need at least 2 examination about 6 hours apart. Appreciate neurology's input. Pupils are dilated and not reactive. Pulmonary: Acceptable oxygenation and ventilation. Appropriate changes was made on the ventilator and ABGs acceptable. Cardiovascular: unstable. Initially patient hypotensive and then hypertensive. GI: Nutrition per dietary and GI prophylaxis per routine Heme: DVT prophylaxis per routine ID: Continue antibiotics and plan to de-escalation. Stop vancomycin and continue Zosyn empirically for possible aspiration Renal; urine out put and renal funtion reviewed Endorcine: blood glucose is monitored Lines: all lines checked and no evidence of infections Skin: skin care to prevent pressure ulcers per nursing routine care I had long discussion with appearance in the presence of the nurse and explained to them about poor prognosis and they agreed his CODE STATUS to be changed to DNR CCA and will have follow-up examination. Initially reason for his arrest was not clear, however repeat urine analysis for tox screen showed evidence of cocaine and marijuana and family is aware. I spent 35 min of Critical Care time with this patient. It involved decision making of high complexity to assess, manipulate, and support vital organ system failure and/or to prevent further life threatening deterioration of the patient' s condition. The time involved in the performance of separately reportable procedures was not counted toward critical care time. <Froylan Rudolph - Last Filed: 10/27/17 16:57> Date of Encounter: 10/27/17 Time of Encounter: 10:15 Assessment and Plan (1) Acute respiratory failure with hypercapnia Current Visit: Yes Status: Acute Patient intubated due to depressed respiration and unable to protect airway. Currently sedated with Versed. On fentanyl. - Continue mechanical ventilation support. (2) Aspiration pneumonia Current Visit: Yes Status: Acute Chest CT shows left greater than right bibasilar parenchymal disease, likely atelectasis with trace right pleural effusion. White blood cell count elevated at 18.5. Patient was started on Zosyn and vancomycin. - Continue Zosyn. - Discontinued vancomycin. - Blood cultures pending. Chest X-Ray 10/26/17 21:08 IMPRESSION: 1. Endotracheal tube approximately 1.1 cm above the tin. 2. Partial re-expansion of the left lung with persistent left basilar airspace opacities. D/ / Carlos Menard MD / Carlos Menard MD Interpreting Provider: Carlos Menard MD Chest CTA 10/26/17 21:15 IMPRESSION: No evidence of a pulmonary embolus. Ewmd-vtnaxvx-dink-right bibasilar parenchymal disease, likely atelectasis. Pneumonia possibly from aspiration not excluded. There is trace right pleural fluid. Cholelithiasis. The tip of the endotracheal tube is at the level of the tin. The tube should be withdrawn 2 cm. D/ / Johnnie Villavicencio MD / Johnnie Villavicencio MD Interpreting Provider: Johnnie Villavicencio MD Qualifiers: Laterality: bilateral Lung location: unspecified part of lung Qualified Code(s): J69.0 - Pneumonitis due to inhalation of food and vomit (3) Sepsis Current Visit: Yes Status: Acute Leukocytosis of 18.5. Lactic acid has dropped since admission from 6.2 down to 1.5. Currently on Zosyn and vancomycin. Patient was given IV fluid boluses in the ER. As put on a bicarbonate drip. Currently on pressor support with Levothroid. Blood pressure hypotensive at 85/47. - Discontinued vancomycin. - Continue Zosyn. - Continue to trend white blood cell count.. - Continue pressor support. - Continue IV fluids. - Goal of map of 55-60 given patient's size. Qualifiers: Sepsis type: sepsis due to unspecified organism Qualified Code(s): A41.9 - Sepsis, unspecified organism (4) Cardiac arrest Current Visit: Yes Status: Acute Status post cardiac arrest likely secondary to drug overdose. Parents mentioned fentanyl. UDS was negative. Troponin is not ordered since patient had CPR performed on an levels will likely be elevated. - Echocardiogram ordered. - Repeat UDS. (5) Metabolic acidosis Current Visit: Yes Status: Acute Patient arrived with a low bicarbonate level. ABG showed an elevated PCO2. Patient was started on a bicarbonate drip. Repeat current bicarbonate level shows it to be within normal limits. PCO2 continues to be elevated however pH has improved to 7.36. Lactic acid level improved to 1.5. (6) Hypoxic brain injury Current Visit: Yes Status: Acute CT of the head reveals global hypoxic ischemic injury secondary to cardiac arrest and respiratory failure. Poor prognosis. Neurology was consulted to discuss prognosis with patient. (7) Hypothermia Current Visit: Yes Status: Acute Patient's temperature had dropped down to 93.2 during his stay here. Passive and active external rewarming techniques were applied. Patient's current temperature at 96.5. - Demerol when necessary for events of shivering. Qualifiers: Encounter type: initial encounter Qualified Code(s): T68.XXXA - Hypothermia , initial encounter (8) DVT prophylaxis Current Visit: Yes Status: Acute Foot pumps. History of Present Illness Consult date: 10/27/17 Requesting physician: Manisha Ahumada Reason for consult: other (S/P cardiac arrest, sepsis ) Chief complaint: s/p Cardiac arrest History of present illness: Patient is a 37-year-old male with a past medical history of achondroplastic dwarfism that presented this morning for cardiac arrest. Patient was last seen by parents around 6:30 PM and was found unresponsive on the floor around 7:45 PM. There are reports that patient was visited by 2 of his friends that apparently brought some possible fentanyl and patient had overdosed. Mother says that around the same time patient had began to be confused and was talking strangely. His eyes and began to roll backwards and he stopped breathing and his lips turned blue. CPR was immediately started by father. Patient on chronic pain medications due to multiple prior back surgeries. Recently had dosage of oxycodone increased. Has history of getting drugs off the street particularly fentanyl. EMS found the patient unresponsive with no pulse or respiratory effort. Patient was PE a upon arrival. Narcan was administrated with additional epinephrine. Patient was started on bicarbonate due to metabolic acidosis. Patient was then subsequently intubated and put on ventilatory support. Mother reports no history of cardiac problems are hypertension or history of diabetes. Past Med Surg Social Fam HX - Past Medical History Medical history: other Additional medical history: Chronic back pain. Psychiatric history: no psych history - Past Surgical History Additional surgical history: Back surgery. Throat surgery - Social History Smoking Status: Former smoker Smokeless Tobacco Status: No Alcohol use: none Drug use: marijuana - Family History Mother History Unknown: Yes ROS unobtainable: due to endotracheal tube, due to mental status All Systems: The remainder of the systems were reviewed and are negative Physical Examination Vital Signs: Vital Signs, Last 4 Hours Temp Pulse Resp BP Pulse Ox 10/27/17 09:33 95.5 F L 87 16 92/42 94 10/27/17 09:00 95.5 F L 91 16 135/112 96 10/27/17 08:00 93.9 F L 86 16 85/56 97 10/27/17 07:59 16 85/56 97 10/27/17 07:37 93.2 F L 10/27/17 07:00 93.2 F L 82 16 94/58 99 10/27/17 06:01 16 85/47 100 10/27/17 06:00 96 F L 96 16 81/42 100 General appearance: no acute distress, other (Patient intubated and sedated) Eyes: nonicteric (.) ENT: oropharynx moist Neck: supple Auscultation: bilateral: rhonchi Cardiovascular: regular rate and rhythm Gastrointestinal: normoactive bowel sounds, soft, other (Mildly distended abdomen) Integumentary: normal Extremities: no cyanosis, no edema, no clubbing, other (Foot pumps on. Good capillary refill.) Musculoskeletal: other (For his him) unable to assess due to mental status Ventilator Settings Ventilator Settings: Ventilator Settings, Last 8 Hours Ventilator Tidal Volume 350 Setting Ventilator Tidal Volume 350 Setting Ventilator Tidal Volume 350 Setting Ventilator Tidal Volume 350 Setting Ventilator Tidal Volume 350 Setting Ventilator Tidal Volume 350 Setting Ventilator Tidal Volume 350 Setting Ventilator Tidal Volume 350 Setting Ventilator Tidal Volume 350 Setting Ventilator Tidal Volume 350 Setting Ventilator Tidal Volume 350 Setting Ventilator Tidal Volume 350 Setting Ventilator Tidal Volume 350 Setting Ventilator Tidal Volume 350 Setting Ventilator Tidal Volume 350 Setting Ventilator Tidal Volume 350 Setting Ventilator Tidal Volume 350 Setting Ventilator Respiratory Rate 16 Setting Ventilator Respiratory Rate 16 Setting Ventilator Respiratory Rate 16 Setting Ventilator Respiratory Rate 16 Setting Ventilator Respiratory Rate 16 Setting Ventilator Respiratory Rate 16 Setting Ventilator Respiratory Rate 16 Setting Ventilator Respiratory Rate 16 Setting Ventilator Respiratory Rate 16 Setting Ventilator Respiratory Rate 16 Setting Ventilator Respiratory Rate 16 Setting Ventilator Respiratory Rate 16 Setting Ventilator Respiratory Rate 16 Setting Ventilator Respiratory Rate 16 Setting Ventilator Respiratory Rate 16 Setting Ventilator Respiratory Rate 16 Setting Ventilator Respiratory Rate 16 Setting Actual Respiratory Rate 16 Actual Respiratory Rate 16 Actual Respiratory Rate 16 Actual Respiratory Rate 16 Actual Respiratory Rate 16 Actual Respiratory Rate 16 Positive End Expiratory 8 Pressure Positive End Expiratory 8 Pressure Positive End Expiratory 8 Pressure Positive End Expiratory 8 Pressure Positive End Expiratory 8 Pressure Positive End Expiratory 8 Pressure Positive End Expiratory 8 Pressure Positive End Expiratory 8 Pressure Positive End Expiratory 8 Pressure Positive End Expiratory 8 Pressure Positive End Expiratory 8 Pressure Positive End Expiratory 8 Pressure Positive End Expiratory 8 Pressure Positive End Expiratory 8 Pressure Positive End Expiratory 8 Pressure Positive End Expiratory 8 Pressure Positive End Expiratory 8 Pressure Peak Inspiratory Airway 26 Pressure Peak Inspiratory Airway 29 Pressure Peak Inspiratory Airway 29 Pressure Peak Inspiratory Airway 28 Pressure Peak Inspiratory Airway 31 Pressure Peak Inspiratory Airway 29 Pressure Peak Inspiratory Airway 27 Pressure Peak Inspiratory Airway 28 Pressure Results - Laboratory Findings CBC and BMP: 10/27/17 04:40 10/27/17 14:00 ABG ABG pH 7.36 pH Units (7.32-7.45) 10/27/17 05:07 ABG pCO2 52 mmHg (35-45) H 10/27/17 05:07 ABG pO2 98 mmHg (85-104) 10/27/17 05:07 ABG O2 Saturation 97 % (95-98) 10/27/17 05:07 PT/INR, D-dimer D-Dimer > [id number] ng/mLFEU (0-500) H 10/26/17 21:17 Abnormal lab findings: Abnormal lab results WBC 18.5 K/mcL (4.3-11.1) H 10/27/17 04:40 RBC 5.70 M/mcL (4.19-5.50) H 10/27/17 04:40 Neutrophils # 15.8 K/mcL (1.6-8.9) H 10/27/17 04:40 Nucleated RBCs/100 WBC 0.2 /100 WBC (0) H 10/26/17 21:17 Reactive Lymphocytes Present (Not Present) A 10/26/17 21:17 Large Platelets Present (Not Present) A 10/26/17 21:17 D-Dimer > [id number] ng/mLFEU (0-500) H 10/26/17 21:17 ABG pCO2 52 mmHg (35-45) H 10/27/17 05:07 ABG HCO3 29 mEq/L (21-27) H 10/27/17 05:07 ABG Total CO2 30 mEq/L (20-26) H 10/27/17 05:07 Sodium 148 mEq/L (136-145) H D 10/27/17 04:40 Chloride 114 mEq/L (98-107) H 10/27/17 04:40 BUN 22 mg/dL (6-20) H 10/27/17 04:40 Calculated Osmolality 309 (280-300) H 10/27/17 04:40 Calcium 8.4 mg/dL (8.6-10.3) L 10/27/17 04:40 AST 168 Units/L (13-39) H 10/26/17 21:17 ALT 126 Units/L (7-52) H 10/26/17 21:17 Alkaline Phosphatase 125 Units/L (34-104) H 10/26/17 21:17 TSH 5.680 mcIU/mL (0.340-5.600) H 10/26/17 21:17 Urine Clarity Cloudy (Clear) A 10/26/17 21:09 Urine Microscopic WBC 15-30 per hpf (0-3) H 10/26/17 21:09 Ur Squamous Epith Cells Many per lpf (None-Few) H 10/26/17 21:09 Salicylates < 2.5 mg/dL (15.0-30.0) L 10/26/17 21:17 Acetaminophen < 10 mcg/mL (10-20) L 10/26/17 21:17 - Clinical Findings Intake & Output: Intake & Output 10/26/17 10/27/17 10/27/17 23:59 07:59 15:59 Intake Total 1490.6 / 1490.6 125 / 125 Output Total 2580 / 2580 225 / 225 Balance -1089.4 / -1089.4 -100 / -100
[2017-10-27] MEDS: D5% in 0.45% NACL 1,000 ML IVC SCH ×2 (11:16→21:45)
--- NOTE | 2017-10-27 12:20 | Neurosurgical History&Physical ---
<RanirachaelAditya - Last Filed: 10/27/17 13:57> Date of Encounter: 10/27/17 Time of Encounter: 11:00 Assessment and Plan (1) Hypoxic brain injury Current visit: Yes Status: Acute CT head showed: "There is no acute intracranial hemorrhage, mass effect or midline shift. No abnormal extra-axial fluid collection. Diffuse loss of andersen-white differentiation throughout the cortical hemisphere is as well as along the basal ganglia and caudate heads. There is no evidence of hydrocephalus." consistent with global hypoxic ischemic injury secondary to Cardiac arrest likely secondary to Overdose based on history and presentation. Original UDS negative, but mom notes patient has been involved in fentanyl use which would not show up on standard UDS. repeat UDS has been ordered. ICU attending has already discussed with family that patient's exam and presentation are consistent with brain and that we are jsut giving him a little bit more time and completion of the rewarming process, but that prognosis is poor and patient is unlikely to recover. Recommendations: Prognosis poor Neurology available to have prognosis discussion with family when available. (2) Cardiac arrest Current visit: Yes Status: Acute History of Present Illness Chief complaint: Cardiac Arrest HPI: Mr. Izaguirre is a 37 year old male w PMHx of Dwarfism, chronic back pain reports the the [facility] brought in by EMS 2/2 witnessed cardiac arrest. Information is obtained from chart review. Patient had a witnessed cardiac arrest around 7:45pm yesterday evening. Family was watching TV. Patient began talking in a confusing manner that did not make sense then he sat down, fell backwards , and his eyes rolled back in his head. He stopped breathign and his lips turned blue. Family called 911 and father started CPR. Patient is on oxycodone at home with dose recently increased to 7.5mg TID. Mother keeps medications locked away and she gives him his medications. She reports however he has recently gotten into street drugs, particularly fentanyl. Mom also reported that Jessenia has been very depressed lately. Per nursing report patient's mother states that two friends had just been over one of which was not known to family and they were alone in the basement prior to family coming down stairs to watch TV. Mom believes these friends are involved in drugs. Patient is intubated and sedated currently on rewarming protocol. Past Med Surg Social Fam HX - Past Medical History Medical history: other Additional medical history: Chronic back pain. Psychiatric history: no psych history - Past Surgical History Additional surgical history: Back surgery. Throat surgery - Social History Smoking Status: Former smoker Smokeless Tobacco Status: No Alcohol use: none Drug use: marijuana - Family History Mother History Unknown: Yes Medications and Allergies Acetaminophen [Tylenol] 325 mg PO Q4HR 09/01/16 [History] Docusate [Colace] 100 mg PO BID 09/01/16 [History] Ergocalciferol (VITAMIN D2) [Vitamin D2] 50,000 unit PO QWEEK 09/01/16 [History] Lidocaine 1 each TP 12 09/01/16 [History] Methocarbamol [Robaxin-750] 750 mg PO QID 09/01/16 [History] Polyethylene Glycol 3350 [Smoothlax] 17 gm PO DAILY 09/01/16 [History] Sennosides [Senna] 8.6 mg PO BID 09/01/16 [History] DULoxetine [Cymbalta] 30 mg PO BID 10/27/17 [History] Gabapentin [Neurontin] 600 mg PO BID 10/27/17 [History] OxyCODONE/APAP 7.5/325 [Percocet 7.5/325 MG] 1 tab PO Q6H PRN 10/27/17 [History] 3 Allergy/AdvReac Type Severity Reaction Status Date / Time Apple Allergy Rash Verified 09/01/16 15:00 blue dye Allergy Rash Verified 09/01/16 15:00 ROS unobtainable: due to mental status All Systems: The remainder of the systems were reviewed and are negative Physical Examination - Vital Signs Vital Signs: Initial Vital Signs Temp Pulse Resp BP Pulse Ox 98.6 F 152 14 0/0 85 10/26/17 20:40 10/26/17 20:40 10/26/17 20:40 10/26/17 20:40 10/26/17 20:40 - Constitutional General appearance: other (Unresponsive) - Neurologic Mental Status Examination: does not follow commands, coma (Patietn with fixed and dilated pupils. No corneal reflex b/l. Patient does not withdrawl to painful stimuli. Patinet currently being rewarmed from hypothermic protocol. ), no spontaneous eye opening to voice or tactile stimulation Results - Laboratory Findings CBC and BMP: 10/27/17 04:40 10/27/17 04:40 Abnormal lab findings: Abnormal lab results WBC 18.5 K/mcL (4.3-11.1) H 10/27/17 04:40 RBC 5.70 M/mcL (4.19-5.50) H 10/27/17 04:40 Neutrophils # 15.8 K/mcL (1.6-8.9) H 10/27/17 04:40 Nucleated RBCs/100 WBC 0.2 /100 WBC (0) H 10/26/17 21:17 Reactive Lymphocytes Present (Not Present) A 10/26/17 21:17 Large Platelets Present (Not Present) A 10/26/17 21:17 D-Dimer > [id number] ng/mLFEU (0-500) H 10/26/17 21:17 ABG pCO2 52 mmHg (35-45) H 10/27/17 05:07 ABG HCO3 29 mEq/L (21-27) H 10/27/17 05:07 ABG Total CO2 30 mEq/L (20-26) H 10/27/17 05:07 Sodium 148 mEq/L (136-145) H D 10/27/17 04:40 Chloride 114 mEq/L (98-107) H 10/27/17 04:40 BUN 22 mg/dL (6-20) H 10/27/17 04:40 Calculated Osmolality 309 (280-300) H 10/27/17 04:40 Calcium 8.4 mg/dL (8.6-10.3) L 10/27/17 04:40 AST 168 Units/L (13-39) H 10/26/17 21:17 ALT 126 Units/L (7-52) H 10/26/17 21:17 Alkaline Phosphatase 125 Units/L (34-104) H 10/26/17 21:17 TSH 5.680 mcIU/mL (0.340-5.600) H 10/26/17 21:17 Urine Clarity Cloudy (Clear) A 10/26/17 21:09 Urine Microscopic WBC 15-30 per hpf (0-3) H 10/26/17 21:09 Ur Squamous Epith Cells Many per lpf (None-Few) H 10/26/17 21:09 Salicylates < 2.5 mg/dL (15.0-30.0) L 10/26/17 21:17 Acetaminophen < 10 mcg/mL (10-20) L 10/26/17 21:17 - VTE Documentation of Mechanical Device: Venous foot pump, device <Rk Riley - Last Filed: 10/27/17 16:03> Date of Encounter: 10/27/17 Time of Encounter: 15:53 Assessment and Plan (1) Hypoxic brain injury Current visit: Yes Status: Acute I agree with the assessment of the resident as stated above. Currently he does have a brain examination. I will reassess him tomorrow. Prognosis under this scenario is poor, considering the findings on the CT scan of the brain likelihood of meaningful recovery is nil. History of Present Illness HPI: The chart was reviewed, the patient was seen and examined independently. The case was discussed with the resident on service. I agree with his assessment of the history as stated above. ROS unobtainable: due to mental status All Systems: The remainder of the systems were reviewed and are negative Physical Examination - Vital Signs Vital Signs: Initial Vital Signs Temp Pulse Resp BP Pulse Ox 98.6 F 152 14 0/0 85 10/26/17 20:40 10/26/17 20:40 10/26/17 20:40 10/26/17 20:40 10/26/17 20:40 - Exam Exam: Mental status-there is no reaction to avoid stimulus, no reaction to tactile stimuli or painful stim. His eyes are open however there is no evidence of visual processing present. The right pupil is dilated at about 5 mm, left pupil was dilated at about 7 mm. There is no pupillary response present. There is no blink reflex. Doll's eyes are absent. Gag is absent. He is not assisting the ventilator at this time. - Neurologic Detailed motor examination: other (Tone is decreased in all 4 extremities. He does seem to have some decerebrate posturing. Otherwise no involuntary movements such as seizure activity are identified.) Results - Laboratory Findings CBC and BMP: 10/27/17 04:40 10/27/17 14:00 Abnormal lab findings: Abnormal lab results WBC 18.5 K/mcL (4.3-11.1) H 10/27/17 04:40 RBC 5.70 M/mcL (4.19-5.50) H 10/27/17 04:40 Neutrophils # 15.8 K/mcL (1.6-8.9) H 10/27/17 04:40 Nucleated RBCs/100 WBC 0.2 /100 WBC (0) H 10/26/17 21:17 Reactive Lymphocytes Present (Not Present) A 10/26/17 21:17 Large Platelets Present (Not Present) A 10/26/17 21:17 D-Dimer > [id number] ng/mLFEU (0-500) H 10/26/17 21:17 ABG pCO2 52 mmHg (35-45) H 10/27/17 05:07 ABG HCO3 29 mEq/L (21-27) H 10/27/17 05:07 ABG Total CO2 30 mEq/L (20-26) H 10/27/17 05:07 Sodium 150 mEq/L (136-145) H 10/27/17 14:00 Chloride 115 mEq/L (98-107) H 10/27/17 14:00 Carbon Dioxide 30 mEq/L (23-29) H 10/27/17 14:00 Creatinine 0.62 mg/dL (0.70-1.30) L 10/27/17 14:00 BUN/Creatinine Ratio 27 (6-26) H 10/27/17 14:00 Glucose 192 mg/dL (70-105) H 10/27/17 14:00 Calculated Osmolality 317 (280-300) H 10/27/17 14:00 AST 168 Units/L (13-39) H 10/26/17 21:17 ALT 126 Units/L (7-52) H 10/26/17 21:17 Alkaline Phosphatase 125 Units/L (34-104) H 10/26/17 21:17 TSH 5.680 mcIU/mL (0.340-5.600) H 10/26/17 21:17 Urine Clarity Cloudy (Clear) A 10/26/17 21:09 Urine Microscopic WBC 15-30 per hpf (0-3) H 10/26/17 21:09 Ur Squamous Epith Cells Many per lpf (None-Few) H 10/26/17 21:09 Salicylates < 2.5 mg/dL (15.0-30.0) L 10/26/17 21:17 Acetaminophen < 10 mcg/mL (10-20) L 10/26/17 21:17 U Benzodiazepines Scrn Positive ng/mL (Pwlomn=130) H 10/27/17 11:03 Urine Cocaine Screen Positive ng/mL (Cutoff= 300) H 10/27/17 11:03 U Marijuana (THC) Screen Positive ng/mL (Cutoff = 50) H 10/27/17 11:03
[2017-10-27] MEDS ORDERED: Sodium Bicarbonate 50 MEQ/50 ML VIAL IVC ONE (13:11)
[2017-10-27] MEDS ORDERED: *HR* EPINEPHrine 30 MG/30 ML MDV IM ONE (13:11)
[2017-10-27 14:36] LABS: Barbiturate Screen,Urine Negative ng/mL (Cutoff=200); Benzodiazepines Screen,Urine Positive ng/mL (Cutoff=200); Cannabinoid Screen,Urine Positive ng/mL (Cutoff = 50); Cocaine Screen,Urine Positive ng/mL (Cutoff= 300); Opiate Screen,Urine Negative ng/mL (Cutoff=300); Phencyclidine Screen,Urine Negative ng/mL (Cutoff=25)
[2017-10-27 15:32] LABS: BUN/Creatinine Ratio 27 (6-26); Blood Urea Nitrogen 17 mg/dL (6-20); Carbon Dioxide 30 mEq/L (23-29); Chloride 115 mEq/L (98-107); Glucose 192 mg/dL (70-105); Osmolality,Calculated 317 (280-300); Potassium 3.5 mEq/L (3.5-5.1); Sodium 150 mEq/L (136-145); eGFR For African Americans > 60 (> 60); eGFR For Non-African Americans > 60 (> 60)
[2017-10-27 15:52] LABS: Amphetamine Screen,Urine Negative ng/mL (Cutoff=1000)
[2017-10-27] MEDS: Pantoprazole 40 MG VIAL IVP SCH (17:59)
[2017-10-27] MEDS ORDERED: Aminoglycoside Consult 1 EACH MC ONE (18:14)
[2017-10-27] MEDS ORDERED: Perflutren Lipid Microsphere 1.3 ML in 0.9 % Sodium Chloride 8.7 ML IVP ONE (21:00)
[2017-10-27] MEDS: Chlorhexidine Rinse 15 ML MOUTHWASH MM SCH (21:45)
[2017-10-28] MEDS: Lacri-Lube 3.5 GM TUBE BOTH EYES SCH ×5 (00:21→15:40)
[2017-10-28] MEDS: Piperacillin/Tazobactam 3.375 GM in 0.9 % Sodium Chloride Mini Bag 100 ML IVPB SCH ×3 (00:23→15:39)
[2017-10-28] MEDS: Norepinephrine 4 MG in D5% in Water 250 ML IVC SCH (03:59)
[2017-10-28 04:08] LABS: Basophils # 0.1 K/mcL (0.0-0.2); Basophils % 0.3 %; Eosinophils # 0.1 K/mcL (0.0-0.6); Eosinophils % 0.5 %; Hematocrit 43.6 % (37.5-50.1); Hemoglobin 14.5 g/dL (12.9-16.9); Immature Granulocytes % 0.5 % (0-4); Lymphocytes # 1.7 K/mcL (0.6-4.6); Lymphocytes % 10.8 %; Mean Corpuscular HGB Conc 33.3 g/dL (31.6-35.5); Mean Corpuscular Hemoglobin 27.9 pg (28.0-33.3); Mean Corpuscular Volume 83.8 fL (83.0-100.0); Mean Platelet Volume 10.7 fL (9.4-12.4); Monocytes % 6.4 %; Neutrophils # 12.9 K/mcL (1.6-8.9); Platelet Count 122 K/mcL (140-400); Red Cell Distribution Width 13.3 % (11.5-14.5); Segmented Neutrophils % 81.5 %
[2017-10-28 04:17] LABS: BUN/Creatinine Ratio 20 (6-26); Blood Urea Nitrogen 10 mg/dL (6-20); Calcium 8.5 mg/dL (8.6-10.3); Carbon Dioxide 25 mEq/L (23-29); Chloride 123 mEq/L (98-107); Glucose 163 mg/dL (70-105); Osmolality,Calculated 323 (280-300); Potassium 2.8 mEq/L (3.5-5.1); Sodium 155 mEq/L (136-145); eGFR For African Americans > 60 (> 60); eGFR For Non-African Americans > 60 (> 60)
[2017-10-28 05:13] LABS: ABG Base Excess 5 mEq/L (-2 to 3); ABG HCO3 29 mEq/L (21-27); ABG Oxygen Saturation 98 % (95-98); ABG PCO2 37 mmHg (35-45); ABG PO2 102 mmHg (85-104); ABG TCO2 30 mEq/L (20-26); Blood Gas Modality ASSIST CONTROL; Blood Gas PEEP 8 cm H2O; Blood Gas Respiration Rate 16; Blood Gas VT 350 cc
[2017-10-28] MEDS ORDERED: Potassium Chloride 40 MEQ/200 ML BAG IVPB ONE (05:59)
[2017-10-28] MEDS: Pantoprazole 40 MG VIAL IVP SCH (06:01)
[2017-10-28] MEDS: Chlorhexidine Rinse 15 ML MOUTHWASH MM SCH (08:47)
[2017-10-28] MEDS ORDERED: Ringers Solution, Lactated 1,000 ML ONE (09:59)
--- NOTE | 2017-10-28 10:36 | Neurology Progress Note ---
Date of Encounter: 10/28/17 Time of Encounter: 10:33 Assessment and Plan (1) Hypoxic brain injury Current Visit: Yes Status: Acute Hypoxic anoxic brain injury. Although he does minimally assist the ventilator, this does not change his ultimate prognosis which is nil. I did have a discussion with the family and they wish to proceed with compassionate extubation. Given the current set of circumstances I agree with this decision. Patient would not have any chance of meaningful recovery. Subjective Interval history: Chart was reviewed, patient was seen and examined. Case discussed with ICU nurses and attending this morning. Prognosis discussed with family. Patient has no spontaneous eye opening, no purposeful movements, he does have some decerebrate posturing when stimulated. Pupils are fixed and dilated, no blink reflexes are present. Doll's eyes are absent. Gag reflex is absent. The vent is set at 18 breaths per minute and he is breathing 19 breaths per minute. Therefore from a purely semantics perspective he is not brain . However this does not change his ultimate prognosis which is nil. Objective - Constitutional Vitals: Temp Pulse Resp BP Pulse Ox 97.7 F 95 18 89/54 96 10/28/17 08:00 10/28/17 10:00 10/28/17 10:00 10/28/17 10:00 10/28/17 10:00 - Neurological Exam Motor Examination: Present: other (Tone is decreased in all 4 extremities. He does seem to have some decerebrate posturing. Otherwise no involuntary movements such as seizure activity are identified.) Mental Status Examination: Present: does not follow commands, coma (Patietn with fixed and dilated pupils. No corneal reflex b/l. Patient does not withdrawl to painful stimuli. Patinet currently being rewarmed from hypothermic protocol. ), no spontaneous eye opening to voice or tactile stimulation Additional comments: Neurologic examination is performed and finds the following: Cerebral functions-there is no spontaneous eye opening, there is no response to voice, or noxious stimuli. He does not localize noxious stimuli. No grimacing. Cranial nerves-pupils are fixed and dilated symmetrically, blink reflexes are absent symmetrically, doll's eyes are absent. Cold calorics were performed ,no response was obtained. Gag reflex is absent. He does take 1 breath per minute above the ventilator setting rate. Cerebellar exam-no nystagmus is identified Motor exam-no spontaneous movements identified decerebrate posturing is present with tactile stimulation. No seizure activity is identified. Deep tendon reflexes are absent throughout. No clonus or Babinski are present. - VTE Documentation of Mechanical Device: Venous foot pump, device Results - Laboratory Findings CBC and BMP: 10/28/17 03:45 10/28/17 03:45 Abnormal lab findings: Abnormal lab results WBC 15.9 K/mcL (4.3-11.1) H 10/28/17 03:45 MCH 27.9 pg (28.0-33.3) L 10/28/17 03:45 Plt Count 122 K/mcL (140-400) L 10/28/17 03:45 Neutrophils # 12.9 K/mcL (1.6-8.9) H 10/28/17 03:45 Nucleated RBCs/100 WBC 0.2 /100 WBC (0) H 10/26/17 21:17 Reactive Lymphocytes Present (Not Present) A 10/26/17 21:17 Large Platelets Present (Not Present) A 10/26/17 21:17 D-Dimer > [id number] ng/mLFEU (0-500) H 10/26/17 21:17 ABG pH 7.50 pH Units (7.32-7.45) H 10/28/17 05:09 ABG HCO3 29 mEq/L (21-27) H 10/28/17 05:09 ABG Total CO2 30 mEq/L (20-26) H 10/28/17 05:09 ABG Base Excess 5 mEq/L (-2 to 3) H 10/28/17 05:09 Sodium 155 mEq/L (136-145) H 10/28/17 03:45 Potassium 2.8 mEq/L (3.5-5.1) L 10/28/17 03:45 Chloride 123 mEq/L (98-107) H 10/28/17 03:45 Creatinine 0.51 mg/dL (0.70-1.30) L 10/28/17 03:45 Glucose 163 mg/dL (70-105) H 10/28/17 03:45 POC Glucose 135 mg/dL (70-99) H 10/27/17 23:07 Calculated Osmolality 323 (280-300) H 10/28/17 03:45 Calcium 8.5 mg/dL (8.6-10.3) L 10/28/17 03:45 AST 168 Units/L (13-39) H 10/26/17 21:17 ALT 126 Units/L (7-52) H 10/26/17 21:17 Alkaline Phosphatase 125 Units/L (34-104) H 10/26/17 21:17 TSH 5.680 mcIU/mL (0.340-5.600) H 10/26/17 21:17 Urine Clarity Cloudy (Clear) A 10/26/17 21:09 Urine Microscopic WBC 15-30 per hpf (0-3) H 10/26/17 21:09 Ur Squamous Epith Cells Many per lpf (None-Few) H 10/26/17 21:09 Salicylates < 2.5 mg/dL (15.0-30.0) L 10/26/17 21:17 Acetaminophen < 10 mcg/mL (10-20) L 10/26/17 21:17 U Benzodiazepines Scrn Positive ng/mL (Lrlfcr=474) H 10/27/17 11:03 Urine Cocaine Screen Positive ng/mL (Cutoff= 300) H 10/27/17 11:03 U Marijuana (THC) Screen Positive ng/mL (Cutoff = 50) H 10/27/17 11:03 Consult Discharge Plan - Plan Referrals: Kevin Gonzalez [Primary Care Provider] -
--- NOTE | 2017-10-28 10:37 | Pulmonology Progress Note ---
Date of Encounter: 10/28/17 Time of Encounter: 10:34 Assessment and Plan (1) Hypoxic brain injury Current Visit: Yes Status: Acute Patient has suffered catastrophic brain injury secondary to anoxia after overdose event. Neurology consulted and both neurology examination and my own examination bedside consistent with brain in the context of a patient that has suffered a injury that would be expected to result in brain . Plan for apnea testing today (2) Cardiac arrest Current Visit: Yes Status: Acute Hemodynamically stable off vasopressors this is secondary to overdose (3) Aspiration pneumonia Current Visit: Yes Status: Acute Continue antimicrobials for presumed aspiration he is currently on Zosyn Qualifiers: Laterality: bilateral Lung location: unspecified part of lung Qualified Code(s): J69.0 - Pneumonitis due to inhalation of food and vomit (4) Overdose Current Visit: Yes Status: Acute Multiple drugs found in the patient's system suspect this may been related to use of fentanyl per family report Qualifiers: Encounter type: initial encounter Injury intent: undetermined intent Qualified Code(s): T50.904A - Poisoning by unspecified drugs, medicaments and biological substances, undetermined, initial encounter (5) Acute respiratory failure with hypercapnia Current Visit: Yes Status: Acute Remains on vent stable oxygenation and ventilation (6) Acute hypernatremia Current Visit: Yes Status: Acute Suspect this is central DI secondary to anoxia start hypotonic fluids and will check osmolarity may need DDAVP (7) Goals of care, counseling/discussion Current Visit: Yes Status: Acute Discussed the case with the family and they want to proceed with making the patient comfort care will do brain testing they have also expressed interest in organ donation and the LOOP will be notified for further discussion Subjective Principal diagnosis: Anoxic Brain Injury Interval history: No acute events overnight patient remains intubated no spontaneous movements noted. Seen by neurology who feels that this represents brain secondary to anoxic brain injury Objective PUL Vital signs: Last Vital Signs Temp 97.7 F 10/28/17 08:00 Pulse 95 10/28/17 10:00 Resp 18 10/28/17 10:00 BP 89/54 10/28/17 10:00 Pulse Ox 96 10/28/17 10:00 General appearance: comatose Eyes: nonicteric Auscultation: bilateral: clear Cardiovascular: regular rate and rhythm Gastrointestinal: hypoactive bowel sounds, soft Integumentary: other (No new rash or erythematous lesions) Extremities: edema Musculoskeletal: other (Achondroplasia phenotype) other (Pupils fixed and dilated no pupillary light response no response to painful stimuli no gag response no corneal reflex) Ventilator Settings Ventilator Settings: Ventilator Settings, Last 8 Hours Ventilator Tidal Volume 350 Setting Ventilator Tidal Volume 350 Setting Ventilator Tidal Volume 350 Setting Ventilator Tidal Volume 350 Setting Ventilator Tidal Volume 350 Setting Ventilator Tidal Volume 350 Setting Ventilator Tidal Volume 350 Setting Ventilator Tidal Volume 350 Setting Ventilator Tidal Volume 350 Setting Ventilator Tidal Volume 350 Setting Ventilator Tidal Volume 350 Setting Ventilator Tidal Volume 350 Setting Ventilator Tidal Volume 350 Setting Ventilator Respiratory Rate 18 Setting Ventilator Respiratory Rate 18 Setting Ventilator Respiratory Rate 18 Setting Ventilator Respiratory Rate 16 Setting Ventilator Respiratory Rate 16 Setting Ventilator Respiratory Rate 16 Setting Ventilator Respiratory Rate 16 Setting Ventilator Respiratory Rate 16 Setting Ventilator Respiratory Rate 16 Setting Ventilator Respiratory Rate 16 Setting Ventilator Respiratory Rate 16 Setting Ventilator Respiratory Rate 16 Setting Ventilator Respiratory Rate 16 Setting Actual Respiratory Rate 18 Actual Respiratory Rate 18 Actual Respiratory Rate 18 Actual Respiratory Rate 16 Actual Respiratory Rate 16 Actual Respiratory Rate 16 Actual Respiratory Rate 17 Actual Respiratory Rate 19 Positive End Expiratory 8 Pressure Positive End Expiratory 8 Pressure Positive End Expiratory 8 Pressure Positive End Expiratory 8 Pressure Positive End Expiratory 8 Pressure Positive End Expiratory 8 Pressure Positive End Expiratory 8 Pressure Positive End Expiratory 8 Pressure Positive End Expiratory 8 Pressure Positive End Expiratory 8 Pressure Positive End Expiratory 8 Pressure Positive End Expiratory 8 Pressure Positive End Expiratory 8 Pressure Peak Inspiratory Airway 28 Pressure Peak Inspiratory Airway 28 Pressure Peak Inspiratory Airway 28 Pressure Peak Inspiratory Airway 30 Pressure Peak Inspiratory Airway 30 Pressure Peak Inspiratory Airway 30 Pressure Peak Inspiratory Airway 28 Pressure Peak Inspiratory Airway 28 Pressure Peak Inspiratory Airway 28 Pressure Peak Inspiratory Airway 27 Pressure Peak Inspiratory Airway 28 Pressure Peak Inspiratory Airway 29 Pressure Results - Laboratory Findings CBC and BMP: 10/28/17 03:45 10/28/17 03:45 ABG ABG pH 7.50 pH Units (7.32-7.45) H 10/28/17 05:09 ABG pCO2 37 mmHg (35-45) 10/28/17 05:09 ABG pO2 102 mmHg (85-104) 10/28/17 05:09 ABG O2 Saturation 98 % (95-98) 10/28/17 05:09 PT/INR, D-dimer D-Dimer > [id number] ng/mLFEU (0-500) H 10/26/17 21:17 Abnormal lab findings: Abnormal lab results WBC 15.9 K/mcL (4.3-11.1) H 10/28/17 03:45 MCH 27.9 pg (28.0-33.3) L 10/28/17 03:45 Plt Count 122 K/mcL (140-400) L 10/28/17 03:45 Neutrophils # 12.9 K/mcL (1.6-8.9) H 10/28/17 03:45 Nucleated RBCs/100 WBC 0.2 /100 WBC (0) H 10/26/17 21:17 Reactive Lymphocytes Present (Not Present) A 10/26/17 21:17 Large Platelets Present (Not Present) A 10/26/17 21:17 D-Dimer > 316100 ng/mLFEU (0-500) H 10/26/17 21:17 ABG pH 7.50 pH Units (7.32-7.45) H 10/28/17 05:09 ABG HCO3 29 mEq/L (21-27) H 10/28/17 05:09 ABG Total CO2 30 mEq/L (20-26) H 10/28/17 05:09 ABG Base Excess 5 mEq/L (-2 to 3) H 10/28/17 05:09 Sodium 155 mEq/L (136-145) H 10/28/17 03:45 Potassium 2.8 mEq/L (3.5-5.1) L 10/28/17 03:45 Chloride 123 mEq/L (98-107) H 10/28/17 03:45 Creatinine 0.51 mg/dL (0.70-1.30) L 10/28/17 03:45 Glucose 163 mg/dL (70-105) H 10/28/17 03:45 POC Glucose 135 mg/dL (70-99) H 10/27/17 23:07 Calculated Osmolality 323 (280-300) H 10/28/17 03:45 Calcium 8.5 mg/dL (8.6-10.3) L 10/28/17 03:45 AST 168 Units/L (13-39) H 10/26/17 21:17 ALT 126 Units/L (7-52) H 10/26/17 21:17 Alkaline Phosphatase 125 Units/L (34-104) H 10/26/17 21:17 TSH 5.680 mcIU/mL (0.340-5.600) H 06/21/18 21:17 Urine Clarity Cloudy (Clear) A 10/26/17 21:09 Urine Microscopic WBC 15-30 per hpf (0-3) H 10/26/17 21:09 Ur Squamous Epith Cells Many per lpf (None-Few) H 10/26/17 21:09 Salicylates < 2.5 mg/dL (15.0-30.0) L 10/26/17 21:17 Acetaminophen < 10 mcg/mL (10-20) L 10/26/17 21:17 U Benzodiazepines Scrn Positive ng/mL (Hwkeqi=966) H 10/27/17 11:03 Urine Cocaine Screen Positive ng/mL (Cutoff= 300) H 10/27/17 11:03 U Marijuana (THC) Screen Positive ng/mL (Cutoff = 50) H 10/27/17 11:03 - Clinical Findings Intake & Output: Intake & Output 10/27/17 10/28/17 10/28/17 23:59 07:59 15:59 Intake Total 1100 / 1100 918 / 918 Output Total 1700 / 1700 325 / 325 Balance -600 / -600 593 / 593 Weight 85.1 kg - VTE Documentation of Mechanical Device: Venous foot pump, device Consult Discharge Plan - Plan Referrals: Kevin Gonzalez [Primary Care Provider] -
[2017-10-28 11:23] LABS: ABG Base Excess 6 mEq/L (-2 to 3); ABG HCO3 29 mEq/L (21-27); ABG Oxygen Saturation 100 % (95-98); ABG PCO2 39 mmHg (35-45); ABG PH 7.49 pH Units (7.32-7.45); ABG PO2 461 mmHg (85-104); ABG TCO2 31 mEq/L (20-26); Blood Gas Modality ASSIST CONTROL; Blood Gas PEEP 8 cm H2O; Blood Gas Respiration Rate 16; Blood Gas VT 350 cc
[2017-10-28 11:54] LABS: ABG Base Excess 3 mEq/L (-2 to 3); ABG HCO3 28 mEq/L (21-27); ABG Oxygen Saturation 100 % (95-98); ABG PCO2 43 mmHg (35-45); ABG PH 7.42 pH Units (7.32-7.45); ABG PO2 396 mmHg (85-104); ABG TCO2 29 mEq/L (20-26); Blood Gas Modality ASSIST CONTROL; Blood Gas PEEP 8 cm H2O; Blood Gas Respiration Rate 18; Blood Gas VT 350 cc
--- NOTE | 2017-10-28 12:34 | Event Note ---
Date of Encounter: 10/28/17 Time of Encounter: 12:30 During apnea testing the patient had noted reflexive shoulder movements and upon auscultation during these events he had significant airflow that was generated. Based upon these findings I am stopping the apnea test and do not feel that apnea testing performed today is a confirmation of brain . Family updated at bedside. They are likely going to proceed with extubation to comfort measures however they want to speak again with the LOOP artist representative about additional options. All questions answered
[2017-10-28 15:21] VITALS: BP 173/87
[2017-10-28] MEDS ORDERED: D5% in Water 1,000 ML IVC SCH (15:30)
--- NOTE | 2017-10-28 18:03 | Death Note ---
Pronouncement Note - Additional Data Attending physician: Ronak Javed MD
[2017-10-28] MEDS ORDERED: *HR* Rocuronium Bromide 100 MG/10 ML VIAL IVC ONE (18:14)
--- NOTE | 2017-10-28 18:38 | Death Note ---
Discharge Sum: Summary - Date and Time Date of admission: 10/27/17 00:24 Date of : 10/28/17 Time of : 17:10 - Summary Details: Gianna Menard and Fannie Garcia pronounced time of of patient at bedside and evaluated. Patient was a 37-year-old male with a past medical history of achondroplastic dwarfism that presented on 10/27/17 for cardiac arrest secondary to drug overdose. UDS was positive for cocaine, marijuana, and benzodiazepines. Patient was found unresponsive by EMS at home with no pulse or respiratory effort. He was PE a upon arrival to the ED. Narcan was administrated with additional epinephrine. Patient was started on bicarbonate due to metabolic acidosis and was subsequently intubated and put on mechanical ventilation support. Patient was also being treated for sepsis secondary to aspiration pneumonia given chest CT showing atelectasis with right pleural effusion and labs showing leukocytosis. Blood cultures were drawn and patient was put on Zosyn. Hypo-thermia protocol was initiated. CT of the head showed global hypoxic injury. Neurology was consulted and assessed patient with having poor prognosis. Prognosis was discussed with family who wished for compassionate extubation today. Patient had advanced directives for organ donation which patient family was also in agreement with. Organ procurement team was brought on board for organ donation viability assessment. Ultimately it was decided by the procurement team that patient was not a good candidate for organ donation given that they believed the patient would after 1 hour from extubation. Patient was extubated at 1650 and was pronounced at 1710. - Additional Data Confirmation of as documented by pronouncing clinician: no pulse, no respirations, no heart sounds, pupils fixed and dilated Family: at bedside Additional persons at bedside: yoon Attending/PCP notified?: Yes Attending physician: Dr. Mackenzie Was code activated?: No Autopsy requested?: No glove examiner notified?: No Organ bank notified?: Yes Advance directives: Yes Hospice patient?: No Discharge Sum: Diag - PCOD Probable Cause of : Respiratory arrest Discharge Sum: Prov - Provider Primary care physician: Kevin Gonzalez Admitting clinician: Qi Martel Attending physician on admission: Qi Martel Consults: 10/27/17 02:05 Consult to Critical Care [CONS] Routine Consulting Provider: [facility] Reason for Consult: Cardiac arrest s/p CPR Call Completed: Yes 10/27/17 08:19 Consult to Neurology [CONS] Routine Consulting Provider: Neurology [facility] Reason for Consult: CT Head shows global hypoxic injury Time Notified: 08:20 Call Completed: Yes Pronouncing clinician: Froylan Rudolph (Attending: Dr. Mackenzie )
== END 2017-10-28 18:15 | disposition expired | DRG 871 ==
LOC: EMEROO 20:40 → ICNU 10-27 00:24
PROVIDERS: ADMIT Family Medicine; ATTEND Family Medicine